=== PATIENT | male | born 1970 | race Caucasian/White ===

== ENCOUNTER 2019-11-02 05:42 | Outpatient (CLI) | payer BC ==
[~2019-11-02] VITALS: Ht 180.3 cm; Wt 134.1 kg
[~2019-11-02 05:42] MED LIST: ACHD5005 PO; AMOX500C2 PO; AZIT1PAC8; CIPR250S2 PO; CPR500T PO; HYDR118S10 PO; HYDR1TAB PO; LISD70CA3; NAPR-243 PO; OMEP-10 PO; PYRIDIUM PO; SULF1TAB35 PO; [UNRECOGNIZED DRUG - CODE]
[2019-11-02] MEDS ORDERED: OMEP20TA7 PO (12:08)
[2019-11-02] MEDS ORDERED: ENAL20TA PO (12:08)
[2019-11-02] MEDS ORDERED: AMPH30TA2 PO (12:08)
== END 2019-11-02 12:15 | disposition home or self-care (01) ==
LOC: PREOP 05:42
PROVIDERS: ATTEND Surgery
DX: Z01.818 Encounter for other preprocedural examination (principal)

== ENCOUNTER 2019-11-09 08:31 | Day surgery (SDC) | payer BC ==
[~2019-11-09] VITALS: Ht 180.3 cm; Wt 134.1 kg
[~2019-11-09 08:31] MED LIST changes: +AMPH30TA2 PO; +ENAL20TA PO; +OMEP20TA7 PO
[2019-11-09] MEDS ORDERED: LACTATED RINGERS 1,000 ML IV ONE (08:38)
[2019-11-09] MEDS ORDERED: LACTATED RINGERS 1,000 ML IV STA (08:42)
[2019-11-09 08:50] VITALS: BP 104/85
--- NOTE | 2019-11-09 08:54 | Progress Note-Pre Operative ---
Pre-Operative Progress Note H&P Reviewed The H&P was reviewed, patient examined and no changes noted. Time Seen by Provider: 08:51 Date H&P Reviewed: Nov 09, 2019 Time H&P Reviewed: 08:52 Pre-Operative Diagnosis: Screening Colonoscopy, Gastritis FADI LONGO DO Nov 09, 2019 08:53
[2019-11-09] MEDS ORDERED: PROPOFOL INJECTION 50 ML IV ONE (08:57)
[2019-11-09] MEDS ORDERED: MIDAZOLAM 2 MG/2 ML (VERSED) VIAL ONE (09:10)
[2019-11-09 10:05] VITALS: BP 121/68
--- NOTE | 2019-11-09 10:07 | Progress Note-Post Operative ---
Post-Operative Progess Note Surgeon (s)/Mechanical Engineering Lecturer (s) Surgeon FADI LONGO DO Mechanical Engineering Lecturer: Nesha Linares MSIII Pre-Operative Diagnosis Screening Colonoscopy, Gastritis Post-Operative Diagnosis Polyp Diverticula Internal hemorrhoids Procedure & Operative Findings Date of Procedure 11/09/19 Procedure Performed/Findings Colon with cold bx Anesthesia Type IV sedation by Anesthesia Estimated Blood Loss Estimated blood loss (mL): scant Specimens/Packing Specimens Removed sigmoid polyp FADI LONGO DO Nov 09, 2019 10:07
--- NOTE | 2019-11-09 10:09 | Endoscopy Discharge Instruct ---
Endo Procedure/Findings Findings 1.: Polyp 2.: Diverticulosis 3.: Internal Hemorrhoids Discharge Instructions - Activity: You might feel a little sleepy until tomorrow. This is due to the medicine you received to relax you. Until tomorrow, you should: NOT drive a car, operate machinery or power tools. NOT drink any alcoholic beverages. NOT make any important decisions or sign importortant papers. Do not return to work until tomorrow, unless otherwise instructed. Resume previous activities tomorrow. Diet: Start by taking liquids. If you tolerate liquids, advance to solid food. make an appointment for one week 1.: Colonscopy in 5 years Notify Physician - If you experience excessive bleeding, unusual abdominal pain, fever, or chest pain, contact your doctor immediately. FADI LONGO DO Nov 09, 2019 10:08
[2019-11-09 10:10] VITALS: BP 131/80
--- NOTE | 2019-11-09 10:23 | Anesthesia-General Post-Op ---
MAC Patient Condition Mental Status/LOC: Same as Preop Cardiovascular: Satisfactory Nausea/Vomiting: Absent Respiratory: Satisfactory Pain: Controlled Complications: Absent Post Op Complications Complications None Follow Up Care/Instructions Patient Instructions None needed. Anesthesiology Discharge Order Discharge Order Patient is doing well, no complaints, stable vital signs, no apparent adverse anesthesia problems. DEANDRE MCKINNEY DO Nov 09, 2019 10:23
[2019-11-09 10:30] VITALS: BP 110/76
[2019-11-09 11:16] VITALS: BP 110/76
--- NOTE | 2019-11-10 01:00 | OPERATIVE REPORT ---
DATE OF SERVICE: PREOPERATIVE DIAGNOSIS: Screening colonoscopy. POSTOPERATIVE DIAGNOSES: Colon polyp, diverticula, internal hemorrhoids. PROCEDURE: Colonoscopy with cold biopsy. SURGEON: Papito Niño DO. BIOMECHANICAL ENGINEER: RITA Moreau. ANESTHESIA: IV sedation by GROUP WORK PROGRAM DIRECTOR. SPECIMEN: Polyp from the sigmoid colon. BLOOD LOSS: Scant. FLUIDS: Per anesthesia. POSTOPERATIVE CONDITION: Stable. INDICATION FOR PROCEDURE: The patient is a 49-year-old male who never had a colonoscopy, needs one for screening. FINDINGS: The patient had one small polyp. He had some diverticula and some internal hemorrhoids. PROCEDURE NOTE: After informed consent was obtained, the patient was brought to the endoscopy suite and placed in bed in the left lateral decubitus position. He was administered IV sedation by the GROUP WORK PROGRAM DIRECTOR who then monitored his vitals the entire time, heart rate, blood pressure and pulse ox and the scope was inserted, pushed all the way to about 150 cm, able to get to the cecum, took a picture of appendiceal orifice, noted the ileocecal valve and then slowly withdrew the scope insufflating to look circumferentially at the pena looking the cecum, up the ascending colon to the hepatic flexure, then down the transverse colon, the splenic flexure, into the descending colon into the sigmoid; through the descending colon and sigmoid, saw some small diverticula and in the sigmoid colon, saw a small polyp, did a cold biopsy of this, able to remove it completely. Continued down in the rectum, retroflexed in the rectal vault, saw some minimal internal hemorrhoids. No other obvious pathology. Scope was removed. The patient was recovered in endoscopy suite, tolerated the procedure well. Job ID: [id number] DocumentID: [id number] Dictated Date: 11/09/2019 16:45:11 Accounting Technician Date: 11/10/2019 00:59:41 Dictated By: PAPITO NIÑO DO
== END 2019-11-09 11:15 | disposition home or self-care (01) ==
LOC: ENDO 08:31
PROVIDERS: ATTEND Surgery
DX: Z12.11 Encounter for screening for malignant neoplasm of colon (principal); K63.5 Polyp of colon; K57.30 Diverticulosis of large intestine without perforation or abscess without bleeding; K64.8 Other hemorrhoids; K62.5 Hemorrhage of anus and rectum; K21.9 Gastro-esophageal reflux disease without esophagitis; I10 Essential (primary) hypertension; E66.01 Morbid (severe) obesity due to excess calories; G47.00 Insomnia, unspecified; F90.9 Attention-deficit hyperactivity disorder, unspecified type; Z68.41 Body mass index [BMI] 40.0-44.9, adult; Z82.3 Family history of stroke; Z80.9 Family history of malignant neoplasm, unspecified; Z83.79 Family history of other diseases of the digestive system

== ENCOUNTER → 2021-10-06 | Outpatient (CLI) | payer BC ==
[~2021-10-06] MED LIST changes: -ENAL20TA PO; +ENAL20TA16 PO
--- NOTE | 2021-10-06 15:24 | Diagnostic Imaging Report ---
INDICATION: Right hip pain. TIME OF EXAM: 12:47 PM. EXAMINATION: Two views of the right hip. FINDINGS: Normal femoral acetabular alignment. Osteoarthritic changes are noted with superior and medial joint space narrowing. There is spurring involving the femoral head/neck junction. No fractures are seen. IMPRESSION: Osteoarthritic changes of right hip. No acute bony abnormality is detected. Dictated by: Dictated on workstation # [id number]
== END ==
LOC: RAD 12:19
PROVIDERS: ATTEND Family Medicine
DX: M16.11 Unilateral primary osteoarthritis, right hip (principal)
CPT/HCPCS: 73502